=== PATIENT | female | born 1955 | race Caucasian/White ===

== ENCOUNTER 2016-09-28 09:51 | Day surgery (SDC) | payer BC ==
--- NOTE | ~2016-09-28 | EGD ---
EGD REPORT [facility] [address] [address] NAME: KAROLYN RICO : [birth year] STATUS : REG [facility]#: [id number] AGE: 61 ADM/REG DATE : 09/28/16 MR#: [id number] REPORT SERV DATE: 09/28/16 DICTATED BY: UNIQUE SARAH DATE: 09/28/16 REPORT STATUS : Draft TRANSCRIBED BY: [employer] DATE: 09/28/16 [facility] Center Patient Name: Karolyn Rico Date of : 1955 Attending MD: UNIQUE SARAH MD Procedure Date No Time: 09/28/2016 Procedure: Upper GI endoscopy Indications: Iron deficiency anemia Referring MD: ALONDRA OLMOS Medicines: See the Anesthesia note for documentation of the administered medications Complications: No immediate complications. Procedure: Pre-Anesthesia Assessment: - ASA Grade Assessment: III - A patient with severe systemic disease. After obtaining informed consent, the endoscope was passed under direct vision. Throughout the procedure, the patient's blood pressure, pulse, and oxygen saturations were monitored continuously. The GIF H190 [id number] was introduced through the mouth, and advanced to the second part of duodenum. The upper GI endoscopy was accomplished without difficulty. The patient tolerated the procedure well. Findings: The 2nd part of the duodenum was normal. Biopsies were taken with a cold forceps for histology. The entire examined stomach was normal. The cardia and gastric fundus were normal on retroflexion. A small hiatus hernia was present. Impression: - Normal 2nd part of the duodenum. Biopsied. - Normal stomach. - Hiatus hernia. Recommendation: - Patient has a contact number available for emergencies. The signs and symptoms of potential delayed complications were discussed with the patient. Return to normal activities tomorrow. Written discharge instructions were provided to the patient. - Regular diet. - Continue present medications. - FOR YOUR BIOPSY RESULTS: Please go to [email or web address] and register to receive your results via the portal. Your biopsy results will be EGD REPORT [facility] [address] [place]. [address] NAME: KAROLYN RICO : [birth year] STATUS : REG [facility]#: [id number] AGE: 61 ADM/REG DATE : 09/28/16 MR#: [id number] REPORT SERV DATE: 09/28/16 DICTATED BY: UNIQUE SARAH DATE: 09/28/16 REPORT STATUS : Draft TRANSCRIBED BY: [employer] DATE: 09/28/16 posted there in about 7 to 10 days. IF you do not see result in 10 days, call office. Procedure Code(s): --- Professional --- 43833, Esophagogastroduodenoscopy, flexible, transoral; with biopsy, single or multiple Diagnosis Code(s): --- Professional --- K44.9, Diaphragmatic hernia without obstruction or gangrene D50.9, Iron deficiency anemia, unspecified CPT copyright 2013 [employer]. All rights reserved. The codes documented in this report are preliminary and upon manager intern review may be revised to meet current compliance requirements. Unique Sarah MD UNIQUE SARAH MD 09/28/2016 11:37 AM This report has been signed electronically. Number of Addenda: 0 Note Initiated On: 09/28/2016 11:28 AM Scope Withdrawal Time 0 hours 0 minutes 0 seconds [address] [place] [address]
--- NOTE | ~2016-09-28 | EGD ---
EGD REPORT [facility] [address] [address] NAME: KAROLYN RICO : [birth year] STATUS : REG [facility]#: [id number] AGE: 61 ADM/REG DATE : 09/28/16 MR#: [id number] REPORT SERV DATE: 09/28/16 DICTATED BY: UNIQUE SARAH DATE: 09/28/16 REPORT STATUS : Draft TRANSCRIBED BY: [employer] DATE: 09/28/16 Endoscopy Center Patient Name: Karolyn Rico Date of : 1955 Attending MD: UNIQUE SARAH MD Procedure Date No Time: 09/28/2016 Procedure: Colonoscopy Indications: Iron deficiency anemia, Last colon 11/2015 Referring MD: ALONDRA OLMOS Medicines: See the Anesthesia note for documentation of the administered medications Complications: No immediate complications. Procedure: Pre-Anesthesia Assessment: - ASA Grade Assessment: III - A patient with severe systemic disease. After I obtained informed consent, the scope was passed under direct vision. Throughout the procedure, the patient's blood pressure, pulse, and oxygen saturations were monitored continuously. The PCF [id number] was introduced through the anus and advanced to the terminal ileum, with identification of the appendiceal orifice and IC valve. The colonoscopy was performed without difficulty. The patient tolerated the procedure well. The quality of the bowel preparation was fair. Findings: The perianal and digital rectal examinations were normal. The terminal ileum appeared normal. Internal hemorrhoids were found during retroflexion and were medium-sized. Diverticula were found in the ascending colon. Normal distal colocolo anastomosis Impression: - The examined portion of the ileum was normal. - Internal hemorrhoids. - Diverticulosis in the ascending colon. - Normal distal colocolo anastomosis Recommendation: - Patient has a contact number available for emergencies. The signs and symptoms of potential delayed complications were discussed with the patient. Return to normal activities tomorrow. Written discharge instructions were provided to the patient. - Regular diet. - Continue present medications. EGD REPORT [address] [address] NAME: KAROLYN RICO : [birth year] STATUS : REG [facility]#: [id number] AGE: 61 ADM/REG DATE : 09/28/16 MR#: [id number] REPORT SERV DATE: 09/28/16 DICTATED BY: UNIQUE SARAH DATE: 09/28/16 REPORT STATUS : Draft TRANSCRIBED BY: [employer] DATE: 09/28/16 - Repeat colonoscopy in 1 year because the bowel preparation was suboptimal. - Return to my office in 6 weeks. Procedure Code(s): --- Professional --- 83528, Colonoscopy, flexible, proximal to splenic flexure; diagnostic, with or without collection of specimen(s) by brushing or washing, with or without colon decompression (separate procedure) Diagnosis Code(s): --- Professional --- K64.8, Other hemorrhoids K57.30, Diverticulosis of large intestine without perforation or abscess without bleeding D50.9, Iron deficiency anemia, unspecified CPT copyright 2013 [employer] [place] [employer] [employer]. All rights reserved. The codes documented in this report are preliminary and upon school psychological examiner review may be revised to meet current compliance requirements. Unique Sarah MD UNIQUE SARAH MD 09/28/2016 11:50 AM This report has been signed electronically. Number of Addenda: 0 Note Initiated On: 09/28/2016 11:25 AM Scope Withdrawal Time 0 hours 8 minutes 4 seconds [address] [place] [address]
[~2016-09-28 09:51] MED LIST: LEVOTHYROXIN137 MCG PO; NUIRONCAP PO; PRIN20 PO; PROZAC PO; SINGULAIR1 PO; SYMBICORT 80/4.1 INH INH; VENTOLIN HFA INH
== END 2016-09-28 23:59 | disposition home or self-care (01) ==
LOC: DMU 09:51
PROVIDERS: Internal Medicine Gastroenterology
PROC: 0DB98ZX Excision of Duodenum, Via Natural or Artificial Opening Endoscopic, Diagnostic (ICD-10-PCS; principal; 2016-09-28 11:30)
PROC: 0DJD8ZZ Inspection of Lower Intestinal Tract, Via Natural or Artificial Opening Endoscopic (ICD-10-PCS; 2016-09-28 11:30)
DX: K64.8 Other hemorrhoids (principal); K44.9 Diaphragmatic hernia without obstruction or gangrene; D50.9 Iron deficiency anemia, unspecified; K57.30 Diverticulosis of large intestine without perforation or abscess without bleeding; I10 Essential (primary) hypertension; J45.909 Unspecified asthma, uncomplicated; R32 Unspecified urinary incontinence; G47.33 Obstructive sleep apnea (adult) (pediatric); F41.9 Anxiety disorder, unspecified; E03.9 Hypothyroidism, unspecified; F17.210 Nicotine dependence, cigarettes, uncomplicated; F32.9 Major depressive disorder, single episode, unspecified; E89.0 Postprocedural hypothyroidism; Z85.038 Personal history of other malignant neoplasm of large intestine; Z88.8 Allergy status to other drugs, medicaments and biological substances; Z90.49 Acquired absence of other specified parts of digestive tract; Z90.710 Acquired absence of both cervix and uterus; Z88.1 Allergy status to other antibiotic agents; Z79.899 Other long term (current) drug therapy
CPT/HCPCS: 82962; 88305; 94640